=== PATIENT | male | born 1985 | race Caucasian/White ===

== ENCOUNTER 2024-01-27 19:52 | Emergency (ER) | payer OTHER ==
[2024-01-27 19:59] VITALS: BP 108/69; PULSE 73; RESP 18; TEMP 99; BMI 32.8
[2024-01-27 20:59] LABS: THROAT:GRP A STREP NOT DETECTED (NOTDETECTED)
[2024-01-27] MEDS ORDERED: DEXAMETHASONE SOD PHOSPHATE 10 MG/1 ML VIAL ONE (22:22)
[2024-01-27] MEDS ORDERED: KETOROLAC TROMETHAMINE 30 MG/1 ML VIAL ONE (22:22)
[2024-01-27] MEDS: DEXAMETHASONE SOD PHOSPHATE 10 MG/1 ML VIAL IVPB ONE (22:28)
[2024-01-27] MEDS: SODIUM CHLORIDE 0.9% 500 ML INFUS.BAG IV ONE (22:28)
[2024-01-27] MEDS: KETOROLAC TROMETHAMINE 30 MG/1 ML VIAL IVPUSH ONE (22:28)
[2024-01-27 22:51] LABS: POTASSIUM 5.5 mmol/L (3.5-5.1)
[2024-01-27 22:53] LABS: CALCIUM 9.2 mg/dL (8.5-10.1)
[2024-01-27 22:54] LABS: ALBUMIN 4.1 g/dl (3.4-5.0); BLOOD UREA NITROGEN 12.4 mg/dL (7-18)
[2024-01-27 22:57] LABS: CREATININE 1.2 mg/dL (0.55-1.3)
[2024-01-27 22:58] LABS: BILIRUBIN,TOTAL 0.9 mg/dL (0.2-1)
[2024-01-27 22:59] LABS: TOT PROT 8.2 g/dl (6.4-8.2)
[2024-01-27 23:01] LABS: BASO % 0.6 % (0-2.0); EOS % 0.7 % (0-4.5); HEMATOCRIT 47.2 % (35.4-49); HEMOGLOBIN 16.3 GM/dL (11.7-16.9); LYMPH % 27.2 % (8-40); MCH 29.4 pg (25.7-33.7); MCHC 34.6 g/dl (32.0-35.9); MEAN CELL VOLUME 84.8 fl (80-96); MEAN PLT VOLUME 9.3 fl (7.5-11.1); MONO % 7.7 % (3.8-10.2); NEUT % 63.8 % (42.8-82.8); PLATELET COUNT 250 10^3/uL (134-434); RBC 5.57 M/mm3 (4.00-5.60); RDW 13.6 % (11.9-15.9); WHITE BLOOD COUNT 12.8 K/mm3 (4.0-10.0)
[2024-01-28] MEDS ORDERED: AMOX TR/POT CLAV 875MG/125MG TABLETS (FP) ONE (00:16)
[2024-01-28] MEDS: AMOX TR/POT CLAV 875MG/125MG TABLETS (FP) PO ONE (00:19)
== END 2024-01-28 00:40 | disposition home or self-care (01) ==
LOC: JERFT 19:52 → JER 19:52
PROC: 3E033GC Introduction of Other Therapeutic Substance into Peripheral Vein, Percutaneous Approach (ICD-10-PCS; principal; 2024-01-27)
PROC: 3E0333Z Introduction of Anti-inflammatory into Peripheral Vein, Percutaneous Approach (ICD-10-PCS; 2024-01-27)
DX: J03.90 Acute tonsillitis, unspecified (principal); R51.9 Headache, unspecified; R50.9 Fever, unspecified; Z20.822 Contact with and (suspected) exposure to COVID-19
CPT/HCPCS: 0241U-QW; 36415; 70491-TC; 80053; 85025; 87070; 87651; 99285-25; J1100; Q9967

== ENCOUNTER 2024-03-30 13:09 | Emergency (ER) | payer OTHER ==
[2024-03-30 14:03] VITALS: BP 125/82; PULSE 64; RESP 17; TEMP 98.2; BMI 25.8
[2024-03-30] MEDS ORDERED: IBUPROFEN 600 MG TABLET (FP) PO ONE (14:44)
[2024-03-30] MEDS: IBUPROFEN 600 MG TABLET (FP) PO ONE (14:58)
[2024-03-30 15:24] LABS: BASO % 0.8 % (0-2.0); EOS % 1.4 % (0-4.5); HEMATOCRIT 43.9 % (35.4-49); HEMOGLOBIN 15.3 GM/dL (11.7-16.9); LYMPH % 41.3 % (8-40); MCH 29.6 pg (25.7-33.7); MCHC 34.8 g/dl (32.0-35.9); MEAN PLT VOLUME 8.7 fl (7.5-11.1); MONO % 5.8 % (3.8-10.2); NEUT % 50.7 % (42.8-82.8); PLATELET COUNT 261 10^3/uL (134-434); RBC 5.17 M/mm3 (4.00-5.60); RDW 13.4 % (11.9-15.9)
[2024-03-30 15:44] LABS: POTASSIUM 4.3 mmol/L (3.5-5.1)
[2024-03-30 15:45] LABS: BLOOD UREA NITROGEN 11.7 mg/dL (7-18); CALCIUM 9.4 mg/dL (8.5-10.1)
[2024-03-30 15:49] LABS: CREATININE 1.1 mg/dL (0.55-1.3)
== END 2024-03-30 16:53 | disposition home or self-care (01) ==
LOC: JERFT 13:09
DX: S80.812A Abrasion, left lower leg, initial encounter (principal); W10.0XXA Fall (on)(from) escalator, initial encounter
CPT/HCPCS: 36415; 73610-TC-LT-FY; 73630-TC-LT; 80048; 85025; 99284-25